=== PATIENT | male | born 1990 | race Caucasian/White ===

== ENCOUNTER 2016-11-17 21:01 | Emergency (ER) | payer SELFPAY ==
[~2016-11-17] VITALS: Ht 165.1 cm; Wt 79.0 kg
[2016-11-17 22:28] VITALS: Ht 165.1 cm; Wt 79.0 kg
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
[2016-11-17 23:18] LABS: URINE BLOOD (Dip) POC Negative (NEGATIVE)
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
--- NOTE | 2016-11-17 23:48 | RADRPT ---
PROCEDURE: XR Lumbar Spine. CLINICAL INDICATION: back pain TECHNIQUE: AP, lateral and cone-down lateral views of the lumbar spine were obtained. COMPARISON: No prior studies are available for comparison. FINDINGS: There is a normal lumbar lordosis. Vertebral body heights appear normal. Intervertebral disk spaces are maintained There is no fracture or dislocation. The facet joints are unremarkable. There is no pars defect identified. The sacroiliac joints appear normal. The soft tissues appear unremarkable. IMPRESSION: Unremarkable lumbar spine. No visualized fracture or dislocation. RPTAT: HBST .Cheng Blake MD, MD Date Time Electronically viewed and signed by .Cheng Blake MD, on 11/17/2016 23:47 .T/
[2016-11-17] MEDS ORDERED: IBUP-1542 PO (23:56)
[2016-11-17] MEDS ORDERED: CYCL-319 PO (23:56)
[2016-11-17] MEDS ORDERED: HYDR-906 PO (23:56)
== END 2016-11-18 00:37 | disposition home or self-care (01) ==
LOC: FTE 21:01
DX: S16.1XXA Strain of muscle, fascia and tendon at neck level, initial encounter (principal); S39.012A Strain of muscle, fascia and tendon of lower back, initial encounter; V49.40XA Driver injured in collision with unspecified motor vehicles in traffic accident, initial encounter
CPT/HCPCS: 72040; 72100; 81003